=== PATIENT | female | born 1985 | race Hispanic/Latino ===

== ENCOUNTER → 2023-12-11 | Emergency (ER) | payer OTHER ==
[~2023-12-11] MED LIST: FAMOTIDINE 20 MG/2 ML VIAL IV ONE; NA CHLORIDE 0.9% 1,000 ML ONE; ONDANSETRON 4 MG/2 ML VIAL ONE; PANTOPRAZOLE 40 MG INJ ONE
[2023-12-11 14:35] LABS: Absolute Lymphocytes (CBC) 1.8 K/uL (0.7-4.9); Hematocrit 37.9 % (36.0-45.0); Lymphocytes % 29.2 % (15.3-44.8); MCV 89.5 fL (80-100); MPV 9.5 fL (7.6-11.3); Platelets 247 thou/uL (152-406); RBC Red Blood Cell Count 4.23 M/uL (3.86-4.86)
[2023-12-11 15:00] LABS: Albumin 3.5 g/dL (3.4-5.0); Bilirubin Total 0.8 mg/dL (0.2-1.0); Protein, Total 7.6 g/dL (6.4-8.2)
[2023-12-11 15:08] LABS: Specific Gravity 1.011 (1.005-1.030); Urine Bacteria <20 /HPF (<20); Urine Bilirubin NEGATIVE (Negative); Urine Blood 3+ (OVER) (Negative); Urine Clarity Extremely Turbid (Clear); Urine Color Light-Yellow (Yellow); Urine Glucose NEGATIVE (Negative); Urine Mucus Slight /HPF (None Seen); Urine Protein 1+ (Negative); Urine RBC >50 /HPF (None Seen); Urine Urobilinogen Normal (Normal); Urine pH 7.5 (5.0-7.0)
[2023-12-11 15:49] LABS: Specific Gravity 1.011 (1.005-1.030)
--- NOTE | 2023-12-11 17:12 | RAD REPORT ---
EXAM DESCRIPTION: CT - Chest Abdomen W Con - 12/11/2023 4:51 pm CLINICAL HISTORY: esophagitis/ulcer COMPARISON: No comparisons TECHNIQUE: Thin axial CT images of the chest, abdomen, and pelvis, performed following intravenous a dministration of 100mL Isovue-300. Multiplanar reformats were generated and reviewed. All CT scans are performed using dose optimization technique as appropriate and may include automated exposure control or mA/KV adjustment according to patient size. FINDINGS: The lungs are clear.No pleural or pericardial effusion.No intrathoracic adenopathy. Mild wall thickening along the distal aspect of the esophagus, nonspecific, and may relate to inflamm atory esophagitis or reflux disease. The liver, spleen, pancreas, adrenal glands and kidneys are within normal limits. No bowel obstruction, bowel wall thickening, or inflammatory changes. No free air, free fluid or absc ess. Appendix is partially visualized and is unremarkable. No pathologic lymphadenopathy in the abdo men or pelvis. No worrisome osseous finding. IMPRESSION: Mild wall thickening along the distal esophagus as above. No other acute findings.
--- NOTE | 2023-12-11 17:19 | EDPHYS ---
Physician Documentation [facility] Name: Neli Almanza Age: 38 yrs Sex: Female : 1985 Arrival Date: 12/11/2023 Time: 12:42 Bed 19 Private MD: ED Physician Vlad Bernal HPI: 12/11 13:36 This 38 yrs old Female presents to ER via Ambulatory with complaints of Chest Pain, sb4 Chest Pressure. 13:36 Patient reports chest pain for 2 days now. She states that she has had several episodes sb4 of dark stool and blood in her vomit. She denies any history of known ulcers, heavy alcohol use, excessive NSAID use. She has been taking [id number] Tums and magnesium without relief in symptoms. Denies any fever, chills, abdominal pain. Historical: - Allergies: 12:56 No Known Allergies; tl4 - Home Meds: 12:56 None [Active]; tl4 - PMHx: 12:56 None; tl4 - PSHx: 12:56 None; tl4 - Immunization history:: Adult Immunizations unknown. - Social history:: Smoking status: Patient denies any tobacco usage or history of. ROS: 13:36 Constitutional: Negative for fever, chills, and weight loss, sb4 13:36 Cardiovascular: Positive for chest pain, 13:36 Abdomen/GI: Positive for nausea and vomiting, hematemesis, black/tarry stool, 13:36 All other systems are negative, Exam: 13:36 Constitutional: This is a well developed, well nourished patient who is awake, alert, sb4 and in no acute distress. Head/Face: Normocephalic, atraumatic. Eyes: Extra-ocular motions intact. Periorbital areas with no swelling, redness, or edema. ENT: Mucous membranes moist. Cardiovascular: Regular rate and rhythm with a normal S1 and S2. Respiratory: Lungs have equal breath sounds bilaterally, clear to auscultation and percussion. No rales, rhonchi or wheezes noted. No increased work of breathing, no retractions or nasal flaring. Abdomen/GI: Soft, non-tender, no distension. Skin: Warm, dry with normal turgor. Normal color with no rashes, no lesions, and no evidence of cellulitis. MS/ Extremity: Pulses equal, no cyanosis. Neurovascular intact. Full, normal range of motion. Neuro: Awake and alert, GCS 15, oriented to person, place, time, and situation. Motor strength 5/5 in all extremities. Sensory grossly intact. Vital Signs: 12:52 BP 117 / 82; Pulse 90; Resp 16; Temp 98.2(O); Pulse Ox 98% ; Weight 90.72 kg; Height 5 tl4 ft. 0 in. ; Pain 0/10; 15:00 BP 117 / 69; Pulse 68; Resp 15; Pulse Ox 99% ; ko1 17:28 BP 115 / 68; Pulse 72; Resp 15; Pulse Ox 100% ; ko1 12:52 Body Mass Index 39.06 (90.72 kg, 152.4 cm) tl4 12:52 Pain Scale: Adult tl4 MDM: 12:47 Patient medically screened. sb4 13:36 Differential diagnosis: esophagitis, gastric ulcer, duodenal ulcer, Vera Mike tear, sb4 GIB. 15:41 Awaiting: CT scan results, urine test label was not sent so test was delayed sb4 therefore CT delayed. 17:17 Data reviewed: vital signs, nurses notes, lab test result(s), radiologic studies, and sb4 as a result, I will discharge patient. 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 12/11 12:54 Order name: CBC with Diff; Complete Time: 14:39 sb4 12/11 12:54 Order name: CMP; Complete Time: 15:06 sb4 12/11 12:54 Order name: Lipase; Complete Time: 15:06 sb4 12/11 12:54 Order name: Test, Urine; Complete Time: 15:52 sb4 12/11 12:54 Order name: Urinalysis w/ reflexes; Complete Time: 15:09 sb4 12/11 12:55 Order name: CT Chest Abdomen W/ Contrast; Complete Time: 17:14 sb4 12/11 12:54 Order name: IV Saline Lock; Complete Time: 14:12 sb4 12/11 12:54 Order name: Labs collected and sent; Complete Time: 14:12 sb4 Administered Medications: 14:24 Drug: NS 0.9% IV 1000 ml IV at 1 bolus Per protocol; 1000 mL bolus Route: IV; Rate: 1 kb3 bolus; Site: right forearm; 14:24 Drug: Famotidine IVP 20 mg IVP once; dilute with 10 mL 0.9% NaCl; give over 2 minutes kb3 Route: IVP; Site: right forearm; 14:24 Drug: Pantoprazole IVP 40 mg IVP once Route: IVP; Site: right forearm; kb3 14:24 Drug: Ondansetron IVP 4 mg IVP once; over 2 minutes Route: IVP; Site: right forearm; kb3 Disposition: 16:53 I was immediately available on-site in the Emergency Department for consultation in the md3 care of the patient. Disposition Summary: 12/11/23 17:18 Discharge Ordered Notes: Location: Home sb4 Problem: new sb4 Symptoms: have improved sb4 Condition: Stable sb4 Diagnosis - Gastro-esophageal reflux disease with esophagitis sb4 Followup: sb4 - With: Trent Patton MD - When: As needed - Reason: Further diagnostic work-up, Recheck today's complaints, Re-evaluation by your physician Followup: sb4 - With: Diomedes Dumont MD - When: As needed - Reason: Further diagnostic work-up, Recheck today's complaints, Re-evaluation by your physician Followup: sb4 - With: Trevor Vang MD - When: As needed - Reason: Further diagnostic work-up, Recheck today's complaints, Re-evaluation by your physician Discharge Instructions: - Discharge Summary Sheet sb4 - Esophagitis sb4 - Gastroesophageal Reflux Disease, Adult, [id number] sb4 Forms: - Medication Reconciliation Form sb4 - Thank You Letter sb4 - Antibiotic Education sb4 - Prescription Opioid Use sb4 - Patient Portal Instructions sb4 - Leadership Thank You Letter sb4 Prescriptions: - pantoprazole 40 mg Oral tablet, delayed release (enteric coated) - take 1 tablet ORAL route every day at bedtime; 30 tablet; Refills: 0, Product sb4 Selection Permitted - Zofran 4 mg Oral Tablet - take 1 tablet ORAL route every 12 hours As needed; 20 tablet; Refills: 0, sb4 Product Selection Permitted - Pepcid 20 mg Oral Tablet - take 1 tablet ORAL route once daily for 10 days; 10 tablet; Refills: 0, Product sb4 Selection Permitted Signatures: Dispatcher [employer] EDVlad Cardenas, DO ms3 Patricia Carmona, RN RN kb3 Naomi Hill, SHERRON [facility] sb4 Tristan Ramon tl4 Corrections: (The following items were deleted from the chart) 12:57 12:56 PMHx: Unable to Obtain; tl4 tl4
--- NOTE | 2023-12-11 17:19 | ER ---
Nurse's Notes [facility] Name: Neli Almanza Age: 38 yrs Sex: Female : 1985 Arrival Date: 12/11/2023 Time: 12:42 Bed 19 Private MD: Diagnosis: Gastro-esophageal reflux disease with esophagitis Presentation: 12/11 12:52 Chief complaint: Patient states: Pt c/o "heartburn and chest pressure" since Monday. tl4 No relief with OTC meds. Pt states she now has black stools and emesis, nausea. Pt denies abdominal pain. Coronavirus screen: Vaccine status: Patient reports being unvaccinated. At this time, the client does not indicate any symptoms associated with coronavirus-19. Ebola Screen: Patient negative for fever greater than or equal to 101.5 degrees Fahrenheit, and additional compatible Ebola Virus Disease symptoms Patient denies exposure to infectious person. Patient denies travel to an Ebola-affected area in the 21 days before illness onset. No symptoms or risks identified at this time. Initial Sepsis Screen: Does the patient meet any 2 criteria? No. Patient's initial sepsis screen is negative. Does the patient have a suspected source of infection? No. Patient's initial sepsis screen is negative. Risk Assessment: Do you want to hurt yourself or someone else? Patient reports no desire to harm self or others. Onset of symptoms was December 09, 2023. 12:52 Method Of Arrival: Ambulatory tl4 12:52 Acuity: JUDITH 3 tl4 Triage Assessment: 12:57 General: Appears uncomfortable, Behavior is calm, cooperative. Pain: Complains of pain tl4 in chest. EENT: No deficits noted. No signs and/or symptoms were reported regarding the EENT system. Neuro: No deficits noted. Cardiovascular: Reports chest pain, nausea. Respiratory: Reports shortness of breath. GI: Reports bloody stool, nausea, vomiting. : No deficits noted. No signs and/or symptoms were reported regarding the genitourinary system. Historical: - Allergies: 12:56 No Known Allergies; tl4 - Home Meds: 12:56 None [Active]; tl4 - PMHx: 12:56 None; tl4 - PSHx: 12:56 None; tl4 - Immunization history:: Adult Immunizations unknown. - Social history:: Smoking status: Patient denies any tobacco usage or history of. Screenin:00 [facility] ED Fall Risk Assessment (Adult) History of falling in the last 3 months, ko1 including since admission No falls in past 3 months (0 pts) Confusion or Disorientation No (0 pts) Intoxicated or Sedated No (0 pts) Impaired Gait No (0 pts) Mobility Assist Device Used No (0 pt) Altered Elimination No (0 pt) Score/Fall Risk Level 0 - 2 = Low Risk Oriented to surroundings, Maintained a safe environment, Educated pt \\T\\ family on fall prevention, incl call for assistance when getting out of bed, Assessed \\T\\ reinforced patient's understanding of fall precautions, Provided non-skid footwear, Hourly rounding (assess needs \\T\\ fall precautionary measures) done, Used ambulatory aids as needed (educated on \\T\\ assisted with), Used gait belt as appropriate. Abuse screen: Denies threats or abuse. Denies injuries from another. Nutritional screening: No deficits noted. Tuberculosis screening: No symptoms or risk factors identified. Assessment: 15:00 Pain: Pain does not radiate. Pain began gradually. ko1 Vital Signs: 12:52 BP 117 / 82; Pulse 90; Resp 16; Temp 98.2(O); Pulse Ox 98% ; Weight 90.72 kg; Height 5 tl4 ft. 0 in. ; Pain 0/10; 15:00 BP 117 / 69; Pulse 68; Resp 15; Pulse Ox 99% ; ko1 17:28 BP 115 / 68; Pulse 72; Resp 15; Pulse Ox 100% ; ko1 12:52 Body Mass Index 39.06 (90.72 kg, 152.4 cm) tl4 12:52 Pain Scale: Adult tl4 ED Course: 12:45 Patient arrived in ED. mg5 12:46 Naomi Hill PA-C is PHCP. sb4 12:46 Vlad Bernal DO is Attending Physician. sb4 12:56 Triage completed. tl4 12:58 Arm band placed on right wrist. tl4 14:12 Initial lab(s) drawn, by me, sent to lab. Inserted saline lock: 22 gauge in right em1 forearm, using aseptic technique. Blood collected. 14:13 CBC with Diff Sent. em1 14:13 CMP Sent. em1 14:13 Lipase Sent. em1 14:41 Franky, Mindy, RN is Primary Nurse. ko1 14:51 Test, Urine Sent. ko1 14:51 Urinalysis w/ reflexes Sent. ko1 15:00 Patient has correct armband on for positive identification. Placed in gown. Bed in low ko1 position. Call light in reach. Side rails up X2. Provided Education on: na. Pulse ox on. NIBP on. Door closed. Noise minimized. Lights dimmed. Warm blanket given. 15:00 No provider procedures requiring assistance completed. Patient maintains SpO2 ko1 saturation greater than 95% on room air. 16:53 CT Chest Abdomen W/ Contrast In Process Unspecified. EDMS 17:17 Trent Patton MD is Referral Physician. sb4 17:17 Diomedes Dumont MD is Referral Physician. sb4 17:17 Trevor Vang MD is Referral Physician. sb4 17:28 IV discontinued, intact, bleeding controlled, No redness/swelling at site. Pressure ko1 dressing applied. Administered Medications: 14:24 Drug: NS 0.9% IV 1000 ml IV at 1 bolus Per protocol; 1000 mL bolus Route: IV; Rate: 1 kb3 bolus; Site: right forearm; 14:24 Drug: Famotidine IVP 20 mg IVP once; dilute with 10 mL 0.9% NaCl; give over 2 minutes kb3 Route: IVP; Site: right forearm; 14:24 Drug: Pantoprazole IVP 40 mg IVP once Route: IVP; Site: right forearm; kb3 14:24 Drug: Ondansetron IVP 4 mg IVP once; over 2 minutes Route: IVP; Site: right forearm; kb3 Medication: 15:00 VIS not applicable for this client. ko1 Outcome: 17:18 Discharge ordered by . sb4 17:28 Discharged to home ambulatory, with family, ko1 17:28 Condition: stable 17:28 Discharge instructions given to patient, family, Instructed on discharge instructions, follow up and referral plans. medication usage, Demonstrated understanding of instructions, follow-up care, medications, Prescriptions given X 3, 17:29 Patient left the ED. ko1 Signatures: Dispatcher [employer] EDMS Michael Fuentes em1 Patricia Carmona RN RN kb3 Mindy Wilkins, LEANN RN ko1 Naomi Hill PA-C PA-C sb4 Chelle Myrick mg5 Tristan Ramon tl4 Corrections: (The following items were deleted from the chart) 12:57 12:56 PMHx: Unable to Obtain; tl4 tl4
[2023-12-11 20:25] VITALS: BP 115/68; TEMP 98.2; O2SAT 100
== END ==
LOC: ER 12:42
DX: K21.00 Gastro-esophageal reflux disease with esophagitis, without bleeding (principal)
CPT/HCPCS: 85025; 81001; 36415; 81025; 83690; 80053; 74160; 71260; Q9967; C9113; J2405; J7030

== ENCOUNTER 2025-02-15 10:42 | Emergency (ER) | payer OTHER ==
--- OUTSIDE RECORDS SUMMARY | 2025-02-15 10:55 | XMS REPORT | Continuity of Care Document ---
Author Name Unknown Address [address] [facility] [address] [place] [address] [facility] [place] Address [address] [facility] [address] [place] [address] Care Team Providers Care Environmental Web Crawler Name Role Phone CAILIN GASCA Primary Care Physician Unavailab JOSIAS Diamond Attending Clinician Unavaila CAILIN Israel Attending Clinician Unavailable Cailin Case Attending Clinician [phone] Lab, Ang - Db Attending Clinician Unavailable ALYCE WILBURN Attending Clinician Unavail able TAYLER CARRILLO Attending Clinician Unavailab Tayler Gautam DO Attending Clinician [phone] GUIDO TOBIAS Attending Clinician Unavailable Guido Godinez Attending Clinician [phone] Unknown, Attending Attending Clinician Unavailab le UNKNOWN, ATTENDING Attending Clinician Unavailab le Doctor Unassigned, [place] Attending Clinician MELVIN Levy Attending Clinician Unavailable Melvin Mnédez MD Attending Clinician [phone] Sahkir ROBERT Attending Clinician Unavailable Shakir Saldivar Attending Clinician [phone] Alyce Benito Attending Clinician + Annemarie Donahue Attending Clinician [phone] ANNEMARIE ACRRILLO Attending Clinician Unavailgab e Dmitriy AGUILAR, Chuck Manjarrez Attending Clinician + [phone] CHUCK PLATT Attending Clinician Unavailab le [facility] WILFRIDO Rizo Attending Clinician Unavailabl e [facility]ician Kira Pollack MD, Shelby Gerardo Attending Clinician [phone] Giana Lynn MD, Lopez Attending Clinician + Geovany Pollack DO Attending Clinician [phone] Eran ZELAYA, Carley Attending Clinician [phone] Provider, Gina Temp Attending Clinician Leatha Quinn Attending Clinician + [phone] WILFRIDO SUMNER Admitting Clinician Unavailabl e Payers Payer Name Policy Type Policy Number Effective Date Expirati on Date Source [employer]IG[employer] II [id number] 2022 00:00:00 MEDICAID PENDING PENDING 2020 00:00:00 Problems Condition Name Condition Details Condition Category Status Onset Date Resolution Date Last Treatment Date Treating Clinician Comments Source Obesity (BMI 30-39.9) Obesity (BMI 30-39.9) Disease Active 2020-11 00:00: 00 [facility] Allergies, Adverse Reactions, Alerts Allergy Name Allergy Type Status Severity Reaction(s) Onset Date Inactive Date Treating Clinician Comments Source NO KNOWN ALLERGIE S Drug Class Active [facility] Social History Social Habit Start Date Stop Date Quantity Comments Source [facility] History SDOH Alcohol Frequency [facility] History SDOH Alcohol Std Drinks [facility] History SDOH Alcohol Binge [facility] Alcohol intake 2023-08-21 00:00:00 2023-08-21 00:00:00 Current drinker of alcohol (finding) [facility] History of Social function 2023-08-21 00:00:00 2023-08-21 00:00:00 [facility] Exposure to SARS-CoV-2 (event) 2022-11-25 00:00:00 2022-12-05 14:10:[address] [facility] Tobacco use and exposure 2022-09-23 00:00:00 2022-09-23 00:00:00 Smokeless tobacco non-user [facility] Alcohol Comment 2021-10-06 00:00:00 2021-10-06 00:00:[address] [facility] Sex Assigned At 1985 00:00:00 1985 00:00:00 [facility] Smoking Status Start Date Stop Date Source Never smoked tobacco [facility] Medications Ordered Medication Name Filled Medication Name Start Date Stop Date Current Medication? Ordering Clinician Indication Dosage Frequency Signature (SIG) Comments Components Source traZODone 50 mg tablet 01-31 00:00: 00 Yes [id number] 50mg TAKE 1 TABLET BY MOUTH EVERY DAY AT BEDTIME NEEDED FOR INSOMNIA [facility] traZODone 50 mg tablet 12-11 00:00: 00 Yes [id number] 50mg Take 1 tablet by mouth at bedtime as needed for Insomnia. [facility] mupirocin 2 % cream 2022-11 00:00: 00 Yes [id number] Apply to affected area(s) 2 (two) times daily. [facility] traZODone 50 mg tablet 2022-11 00:00: 00 12-10 00:00 :00 No [id number] 50mg Take 1 tablet by mouth at bedtime as needed for Insomnia. [facility] SERTraline (ZOLOFT) 25 mg tablet 2022-11 00:00: 00 Yes [id number] 25mg Take 1 tablet by mouth in the morning. [facility] SERTraline (ZOLOFT) 25 mg tablet 2022-11 0-09 00:00: 00 10-12 00:00 :00 No [id number] 25mg Take 1 tablet by mouth in the morning. [facility] traZODone 50 mg tablet 2022-11 0-09 00:00: 00 10-12 00:00 :00 No [id number] 50mg Take 1 tablet by mouth at bedtime as needed for Insomnia. [facility] traZODone 50 mg tablet 6-24 00:00: 00 08-21 00:00 :00 No [id number] 50mg Take 1 tablet by mouth at bedtime as needed for Insomnia. [facility] traZODone 50 mg tablet 3-31 00:00: 00 Yes [id number] 50mg Take 1 tablet by mouth at bedtime as needed for Insomnia. [facility] SERTraline (ZOLOFT) 50 mg tablet 01-31 00:00: 00 08-21 00:00 :00 No [id number] 50mg Take 1 tablet by mouth in the morning. [facility] dicyclomine 10 mg capsule 3-04 00:00: 00 01-20 05:59 :00 No [id number] 10mg Take 1 capsule by mouth 4 (four) times daily for 5 days. [facility] ondansetron 4 mg disintegrat ing tablet 3 00:00: 00 01-20 05:59 :00 No [id number] 4mg Take 1 tablet by mouth every 8 (eight) hours as needed for Nausea and Vomiting (N/V) for up to 5 days. [facility] MUPIROCIN 2 % cream 1-24 00:00: 00 10-12 00:00 :00 No [id number] APPLY TO AFFECTED AREA TWICE A DAY [facility] buPROPion SR (WELLBUTRIN SR) 150 mg SR tablet 1- 00:00: 00 Yes [id number] 150mg Take 1 tablet by mouth in the morning and 1 tablet in the evening. [facility] SERTraline (ZOLOFT) 50 mg tablet 12-05 00:00: 00 01-31 00:00 :00 No [id number] 50mg Take 1 tablet by mouth in the morning. [facility] mupirocin 2 % cream 12-05 00:00: 00 12-06 00:00 :00 No [id number] Apply to area(s) 2 (two) times daily. [facility] traZODone 50 mg tablet 11-21 00:00: 00 02-10 00:00 :00 No [id number] 50mg Take 1 tablet by mouth at bedtime as needed for Insomnia. [facility] ergocalcife rol, vitamin d2, 1,250 mcg (50,000 unit) capsule 2021-11 00:00: 00 Yes [id number] 45312E Take 1 capsule by mouth weekly. [facility] traZODone 50 mg tablet 2021-11 00:00: 00 Yes [id number] 50mg Take 1 tablet by mouth at bedtime as needed for Insomnia. [facility] buPROPion SR (WELLBUTRIN SR) 150 mg SR tablet 2021-11 00:00: 00 12-05 00:00 :00 No [id number] 150mg Take 1 tablet by mouth in the morning and 1 tablet in the evening. [facility] bromphenira mine-pseudo ephedrine-D M (BROMFED DM) 2-30-10 mg/5 mL syrup 2021-11 00:00: 00 12-05 00:00 :00 No [id number] 5mL Take 5 mL by mouth 4 (four) times daily as needed for Congestion /Allergies . [facility] benzonatate 100 mg capsule 2021-11 00:00: 00 12-05 00:00 :00 No [id number] 200mg Take 2 capsules by mouth every 8 (eight) hours as needed for Cough. [facility] phenoL (CHLORASEPT IC THROAT SPRAY) 1.4 % spray 2021-11 00:00: 00 12-05 00:00 :00 No [id number] 1{spray } Take 1 [place] by mouth as needed for Sore throat. [facility] ondansetron 4 mg disintegrat ing tablet 05-25 00:00: 00 12-05 00:00 :00 No [id number] 4mg Take 1 tablet by mouth every 8 (eight) hours as needed for Nausea and Vomiting (N/V). [facility] norethindro ne 0.35 mg tablet 2020-11 00:00: 00 12-05 00:00 :00 No [id number] .35mg Take 1 tablet by mouth daily. [facility] vitamin w/FA tablet 06-06 00:00: 00 10-06 00:00 :00 No [id number] 1{tbl} Take 1 tablet by mouth daily. [facility] docusate calcium 240 mg capsule 06-06 00:00: 00 10-06 00:00 :00 No [id number] 240mg Take 1 capsule by mouth once daily as needed for Constipati on. [facility] ferrous sulfate 325 mg (65 mg iron) tablet 06-06 00:00: 00 10-06 00:00 :00 No [id number] 325mg Take 1 tablet by mouth 2 (two) times daily. [facility] ibuprofen 600 mg tablet 06-06 00:00: 00 10-06 00:00 :00 No [id number] 600mg Take 1 tablet by mouth every 6 (six) hours as needed (Pain). Take with food or milk. [facility] norethindro ne 0.35 mg tablet 06-06 00:00: 00 10-06 00:00 :00 No [id number] .35mg Take 1 tablet by mouth daily. [facility] Immunizations Ordered Immunization Name Filled Immunization Name Date Status Comments Source TDAP 2024-02-01 00:00:[address] [facility] MMR 2024-02-01 00:00:[address] [facility] TDAP 2023-12-10 00:00:[address] [facility] MMR 2023-12-10 00:00:[address] [facility] TDAP 2023-11-16 00:00:[address] [facility] MMR 2023-11-16 00:00:[address] [facility] TDAP 2023-10-12 00:00:[address] [facility] MMR 2023-10-12 00:00:[address] [facility] TDAP 2023-10-12 00:00:[address] [facility] MMR 2023-10-12 00:00:[address] [facility] TDAP 2023-08-24 09:30:[address] [facility] MMR 2023-08-24 09:30:[address] [facility] TDAP 2023-08-21 16:30:[address] [facility] MMR 2023-08-21 16:30:[address] [facility] TDAP 2022-01-25 00:00:[address] [facility] MMR 2022-01-25 00:00:[address] [facility] MMR 2021-06-06 00:00:[address] [facility] MMR 2021-06-06 00:00:[address] [facility] MMR 2021-06-06 00:00:[address] [facility] MMR 2021-06-06 00:00:[address] [facility] MMR 2021-06-06 00:00:[address] [facility] MMR 2021-06-06 00:00:[address] [facility] MMR 2021-06-06 00:00:[address] [facility] MMR 2021-06-06 00:00:[address] [facility] MMR 2021-06-06 00:00:[address] [facility] MMR 2021-06-06 00:00:[address] [facility] MMR 2021-06-06 00:00:[address] [facility] MMR 2021-06-06 00:00:[address] [facility] MMR 2021-06-06 00:00:[address] [facility] MMR 2021-06-06 00:00:[address] [facility] MMR 2021-06-06 00:00:[address] [facility] MMR 2021-06-06 00:00:[address] [facility] MMR 2021-06-06 00:00:[address] [facility] TDAP 2021-03-24 00:00:[address] [facility] TDAP 2021-03-24 00:00:[address] [facility] TDAP 2021-03-24 00:00:[address] [facility] TDAP 2021-03-24 00:00:[address] [facility] TDAP 2021-03-24 00:00:[address] [facility] TDAP 2021-03-24 00:00:[address] [facility] TDAP 2021-03-24 00:00:[address] [facility] TDAP 2021-03-24 00:00:[address] [facility] TDAP 2021-03-24 00:00:[address] [facility] TDAP 2021-03-24 00:00:[address] [facility] TDAP 2021-03-24 00:00:[address] [facility] TDAP 2021-03-24 00:00:[address] [facility] TDAP 2021-03-24 00:00:[address] [facility] TDAP 2021-03-24 00:00:[address] [facility] TDAP 2021-03-24 00:00:[address] [facility] TDAP 2021-03-24 00:00:[address] [facility] TDAP 2021-03-24 00:00:[address] [facility] Vital Signs Vital Name Observation Time Observation Value Comments S ource Systolic blood pressure 2023-08-21 21:22:00 115 mm[Hg] [facility] Diastolic blood pressure 2023-08-21 21:22:00 76 mm[Hg] [facility] Heart rate 2023-08-21 21:22:00 75 /min [facility] Body height 2023-08-21 21:22:00 152.4 cm [facility] Body weight 2023-08-21 21:22:00 89.812 kg [facility] BMI 2023-08-21 21:22:00 38.67 kg/m2 [facility] Oxygen saturation in Arterial blood by Pulse oximetry 2023-08-21 21:22:00 98 /min [facility] Systolic blood pressure 2023-01-15 02:19:00 125 mm[Hg] [facility] Diastolic blood pressure 2023-01-15 02:19:00 86 mm[Hg] [facility] Heart rate 2023-01-15 02:19:00 101 /min [facility] Body temperature 2023-01-15 02:19:[address] [facility] Respiratory rate 2023-01-15 02:19:00 16 /min [facility] Body weight 2023-01-15 02:19:00 79.833 kg [facility] BMI 2023-01-15 02:19:00 34.37 kg/m2 [facility] Oxygen saturation in Arterial blood by Pulse oximetry 2023-01-15 02:19:00 97 /min [facility] Systolic blood pressure 2022-12-05 20:13:00 128 mm[Hg] [facility] Diastolic blood pressure 2022-12-05 20:13:00 86 mm[Hg] [facility] Heart rate 2022-12-05 20:13:00 77 /min [facility] Body height 2022-12-05 20:13:00 152.4 cm [facility] Body weight 2022-12-05 20:13:00 82.328 kg [facility] BMI 2022-12-05 20:13:00 35.45 kg/m2 [facility] Oxygen saturation in Arterial blood by Pulse oximetry 2022-12-05 20:13:00 98 /min [facility] Systolic blood pressure 2022-09-23 19:18:00 122 mm[Hg] [facility] Diastolic blood pressure 2022-09-23 19:18:00 83 mm[Hg] [facility] Heart rate 2022-09-23 19:18:00 71 /min [facility] Body height 2022-09-23 19:18:00 152.4 cm [facility] Body weight 2022-09-23 19:18:00 83.961 kg [facility] BMI 2022-09-23 19:18:00 36.15 kg/m2 [facility] Oxygen saturation in Arterial blood by Pulse oximetry 2022-09-23 19:18:00 100 /min [facility] Systolic blood pressure 2022-08-30 16:25:00 123 mm[Hg] [facility] Diastolic blood pressure 2022-08-30 16:25:00 85 mm[Hg] [facility] Heart rate 2022-08-30 16:25:00 113 /min [facility] Body temperature 2022-08-30 16:25:[address] [facility] Respiratory rate 2022-08-30 16:25:00 18 /min [facility] Body height 2022-08-30 16:25:00 152.4 cm [facility] Body weight 2022-08-30 16:25:00 82.237 kg [facility] BMI 2022-08-30 16:25:00 35.41 kg/m2 [facility] Oxygen saturation in Arterial blood by Pulse oximetry 2022-08-30 16:25:00 95 /min [facility] Systolic blood pressure 2022-05-25 15:28:00 116 mm[Hg] [facility] Diastolic blood pressure 2022-05-25 15:28:00 79 mm[Hg] [facility] Heart rate 2022-05-25 15:28:00 95 /min [facility] Body temperature 2022-05-25 15:28:[address] [facility] Respiratory rate 2022-05-25 15:28:00 18 /min [facility] Body weight 2022-05-25 15:28:00 82.555 kg [facility] BMI 2022-05-25 15:28:00 35.54 kg/m2 [facility] Oxygen saturation in Arterial blood by Pulse oximetry 2022-05-25 15:28:00 98 /min [facility] Systolic blood pressure 2021-10-06 19:27:00 135 mm[Hg] [place] [facility] Diastolic blood pressure 2021-10-06 19:27:00 90 mm[Hg] [place] [facility] Heart rate 2021-10-06 19:27:00 68 /min [facility] Body temperature 2021-10-06 19:27:[address] [facility] Respiratory rate 2021-10-06 19:27:00 16 /min [facility] Body height 2021-10-06 19:27:00 152.4 cm [facility] Body weight 2021-10-06 19:27:00 82.668 kg [facility] BMI 2021-10-06 19:27:00 35.59 kg/m2 [facility] Procedures Procedure Date / Time Performed Performing Clinicia n Source NOTICE OF PRIVACY PRACTICES 2023-01-15 02:48:12 Doctor Unassigned, [place] [facility] CONSENT/REFUSAL FOR DIAGNOSIS AND TREATMENT 2023-01-15 02:47:06 Doctor Unassigned, [place] [facility] PATIENT FINANCIAL POLICY 2023-01-15 02:06:41 Doctor Unassigned, [place] [facility] COMP. METABOLIC PANEL ([id number]) 2022-09-23 20:05:[address] [facility] CBC WITH DIFF 2022-09-23 20:05:00 Cailin Gasca [facility] POCT MOLECULAR FLU 2022-08-30 16:57:00 Unknown, Attend ing [facility] POCT MOLECULAR STREP 2022-08-30 16:37:00 Unknown, Atte nding [facility] ASSIGNMENT OF BENEFITS 2022-08-30 16:21:11 Docto r Unassigned, [place] [facility] COVID-19 (ID NOW RAPID TESTING) 2022-05-25 15:52:[address] [facility] CONSENT/REFUSAL FOR DIAGNOSIS AND TREATMENT 2022-05-25 15:16:55 Doctor Unassigned, [place] [facility] Encounters Start Date/Time End Date/Time Encounter Type Admission Type Attending Clinicians Care Facility Care Department Encounter ID Source 2024-06-24 09:00:00 2024-06-24 09:00:00 Outpatient R CAILIN GASCA [facility] [id number] [facility] 2024-02-01 00:00:00 2024-02-01 00:00:00 [facility] [id number] 350.1.13.10 4.2.7.2.686 [id number] [facility] 2023-12-11 15:30:00 2023-12-11 15:30:00 Outpatient R CAILIN GASCA [facility] [id number] [facility] 2023-12-10 00:00:00 2023-12-10 00:00:00 [facility] [id number] 350.1.13.10 4.2.7.2.686 [id number] [facility] 2023-11-28 11:30:00 2023-11-28 11:30:00 Outpatient CAILIN MACHADO [facility] [id number] [facility] 2023-11-16 00:00:00 2023-11-16 00:00:00 Patient Secure [facility] 1.2.840.114 350.1.13.10 4.2.7.2.686 [id number] [facility] 2023-10-12 00:00:00 2023-10-12 00:00:00 RefCandice StoneReplaced by [facility] [id number] 350.1.13.10 4.2.7.2.686 [id number] [facility] 2023-10-12 00:00:00 2023-10-12 00:00:00 RefCandice [facility]on[facility]iUNC [facility]Z?[facility] 1.2.840.114 350.1.13.10 4.2.7.2.686 [id number] [facility] 2023-08-24 09:30:00 2023-08-24 10:09:03 Outpatient R CAILIN GASCA [facility] [id number] [facility] 2023-08-24 09:30:00 2023-08-24 10:09:03 Slab Miller Operator Visit Lab, [place] [facility] [id number] 350.1.13.10 4.2.7.2.686 [id number] [facility] 2023-08-21 16:30:00 2023-08-21 17:12:08 Outpatient R CAILIN GASCA [facility] [id number] [facility] 2023-08-21 16:30:00 2023-08-21 17:12:08 Office Visit Candice [facility]aReplaced by [facility] 1.2840.114 350.1.13.10 4.2.7.2.686 [id number] [facility] 2023-05-05 00:00:00 2023-05-05 00:00:00 Refill Sharif [facility] [id number] 350.1.13.10 4.2.7.2.686 [id number] [facility] 2023-02-09 00:00:00 2023-02-09 00:00:00 Refill [facility]if [facility] 1.2840.114 350.1.13.10 4.2.7.2.686 [id number] [facility] 2023-01-31 00:00:00 2023-01-31 00:00:00 RefCailin Stone [facility] 1..840.114 350.1.13.10 4.2.7.2.686 [id number] [facility] 2023-01-14 21:19:00 2023-01-14 21:55:00 Emergency X TAYLER CARRILLO [facility] ERT [id number] [facility] 2023-01-14 21:19:00 2023-01-14 21:55:00 Emergency Tayler Carrillo [facility] 1..840.114 350.1.13.10 4.2.7.2.686 [id number] [facility] 2023-01-14 20:20:00 2023-01-14 20:43:06 Outpatient R GUIDO TOBIAS [facility] [id number] [facility] 2023-01-14 20:20:00 2023-01-14 20:40:00 Urgent Care Guido Tobias Unknown, Attending [facility] 1..840.114 350.1.13.10 4.2.7.2.686 [id number] [facility] 2023-01-14 20:15:00 2023-01-14 20:15:00 Outpatient R UNKNOWN, ATTENDING [facility] [id number] [facility] 2023-01-14 00:00:00 2023-01-14 00:00:00 Orders Only Doctor Unassigned, [place] [facility] 1.840.114 350.1.13.10 4.2.7.2.686 [id number] [facility] 2022-12-05 14:30:00 2022-12-05 15:22:33 Outpatient R CAILIN GASCA [facility] [id number] [facility] 2022-12-05 14:30:00 2022-12-05 15:22:33 [facility] 1.2840.114 350.1.13.10 4.2.7.2.686 [id number] [facility] 2022-12-05 00:00:00 2022-12-05 00:00:00 Refill Candice GascaReplaced by [facility] 1.2840.114 350.1.13.10 4.2.7.2.686 [id number] [facility] 2022-12-05 00:00:00 2022-12-05 00:00:00 Telephone Candice GascaReplaced by [facility]LEE PEREZ?[facility] MED[facility] OFFICE BUILDING 1.2840.114 350.1.13.10 4.2.7.2.686 [id number] [facility] 2022-11-21 00:00:00 2022-11-21 00:00:00 RefCandice StoneReplaced by [facility]EREZ?[facility] MED[facility] OFF[facility] BUILDING 1.284.114 350.1.13.10 4.2.7.2.686 [id number] [facility] 2022-10-19 00:00:00 2022-10-19 00:00:00 Patient Secure Msg Candice GascaReplaced by [facility] MED[facility] OFFICE BUILDING 1.2840.114 350.1.13.10 4.2.7.2.686 [id number] [facility] 2022-09-23 14:00:00 2022-09-23 14:15:00 Slab Miller Operator Visit Lab, [facility] Candice GascaReplaced by [facility]EREZ?[facility] MEDICAL OFFICE BUILDING 1.2840.114 350.1.13.10 4.2.7.2.686 [id number] [facility] 2022-09-23 13:00:00 2022-09-23 13:51:24 Outpatient R CAILIN GASCA [facility] [id number] [facility] 2022-09-23 13:00:00 2022-09-23 13:51:24 [facility] MED[facility] OFF[facility] BUILD[facility] 1.114 350.1.13.10 4.2.7.2.686 [id number] [facility] 2022-08-30 11:20:00 2022-08-30 11:39:27 Outpatient R MELVIN MÉNDEZ [facility] [id number] [facility] 2022-08-30 11:20:00 2022-08-30 11:39:27 Urgent Care Dev Melvin Unknown, Attending [facility] 1.84114 350.1.13.10 4.2.7.2.686 [id number] [facility] 2022-08-30 00:00:00 2022-08-30 00:00:00 Orders Only Doctor Unassigned, [place] [facility] 1.114 350.1.13.10 4.2.7.2.686 [id number] [facility] 2022-05-25 10:30:00 2022-05-25 12:55:00 Emergency X Shakir ROBERT [facility] [id number] [facility] 2022-05-25 10:30:00 2022-05-25 12:55:00 Emergency Shakir Robert [facility] 1.0.114 350.1.13.10 4.2.7.2.686 [id number] [facility] 2022-01-25 00:00:00 2022-01-25 00:00:00 Patient Secure Alyce Wilburn Shaun [facility] [employer] [facility]ILD [facility] 1..840.114 350.1.13.10 4.2.7.2.686 [id number] [facility] 2021-10-06 13:09:25 2021-10-06 13:53:59 Office Visit Annemarie Carrillo [facility] [employer] [facility]ILD [facility] 1.840.114 350.1.13.10 4.2.7.2.686 [id number] [facility] 2021-10-06 13:00:00 2021-10-06 13:53:59 Outpatient R ANNEMARIE CARRILLO [facility] [id number] [facility] 2021-07-12 13:00:00 2021-07-12 13:00:00 Outpatient R ALYCE WILBURN [facility] [id number] [facility] 2021-06-21 11:01:00 2021-06-21 11:16:00 Routine Visit Chuck Platt [facility] 1.840.114 350.1.13.10 4.2.7.2.686 [id number] [facility] 2021-06-21 11:00:00 2021-06-21 11:00:00 Outpatient R CHUCK PLATT [facility] [id number] [facility] 2021-06-14 12:53:49 2021-06-14 13:20:53 Nurse Visit Visit, Ang-Rmchp Nurse Chuck Platt [facility] 1..840.114 350.1.13.10 4.2.7.2.686 [id number] [facility] 2021-06-14 13:00:00 2021-06-14 13:00:00 Outpatient R ZEKE PLATTJoe [facility] [id number] [facility] 2021-06-05 07:47:00 2021-06-05 07:47:00 Outpatient P WILFRIDO SUMNER [facility] [id number] [facility] 2021-06-05 00:00:00 2021-06-05 00:00:00 Orders Only Doctor Unassigned, [place] [facility] 1.114 350.1.13.10 4.2.7.2.686 [id number] [facility] 2021-06-02 14:15:41 2021-06-02 15:16:50 Routine Visit Alyce Wilburn [facility] [employer]ERNAL & CHILD [facility] 1..114 350.1.13.10 4.2.7.2.686 [id number] [facility] 2021-06-02 14:15:00 2021-06-02 14:15:00 Outpatient R ALYCE WILBURN [facility] [id number] [facility] 2021-05-26 10:02:09 2021-05-26 10:39:11 Routine Visit Alyce Wilburn [facility] [employer] [facility] 1..114 350.1.13.10 4.2.7.2.686 [id number] [facility] 2021-05-26 10:15:00 2021-05-26 10:15:00 Outpatient R ALYCE WILBURN [facility] [id number] [facility] 2021-05-19 14:11:05 2021-05-19 15:20:43 Routine Visit Alyce Wilburn [facility] [employer] [facility] 1..114 350.1.13.10 4.2.7.2.686 [id number] [facility] 2021-05-19 14:15:00 2021-05-19 14:15:00 [facility] [id number] [facility] 2021-05-05 10:00:25 2021-05-05 10:44:49 Routine Visit Alyce Wilburn [facility] [employer] 1.2.840.114 350.1.13.10 4.2.7.2.686 [id number] 107 [id number] [facility] 2021-05-05 10:00:00 2021-05-05 10:00:00 Outpatient R ALYCE WILBURN [facility] [id number] [facility] 2021-04-21 09:11:42 2021-04-21 09:26:42 Routine Visit Alyce Wilburn [facility] [employer] [facility] ..840.114 350.1.13.10 4.2.7.2.686 [id number] 107 [id number] [facility] 2021-04-21 09:15:00 2021-04-21 09:15:00 Outpatient R ALYCE WILBURN [facility] [id number] [facility] 2021-04-07 08:54:34 2021-04-07 09:52:24 Routine Visit Alyce Wilburn [facility] [facility] .2.840.114 350.1.13.10 4.2.7.2.686 [id number] [facility] 2021-04-07 09:00:00 2021-04-07 09:00:00 Outpatient R ALYCE WILBURN [facility] [id number] [facility] 2021-03-24 08:06:15 2021-03-24 08:32:49 Routine Visit Alyce Wilburn [facility] [employer]ER [facility] CHILD [place] [address].114 350.1.13.10 4.2.7.2.686 [id number] 107 [id number] [facility] 2021-03-24 08:00:00 2021-03-24 08:00:00 Outpatient R ALYCE WILBURN [facility] [id number] [facility] 2021-03-17 10:04:29 2021-03-17 10:34:29 Slab Miller Operator Visit Ultrasound, Shelby Figueroa [facility] [employer] .114 350.1.13.10 4.2.7.2.686 [id number] [facility] 2021-03-17 10:15:00 2021-03-17 10:15:00 Outpatient P [facility] [id number] [facility] 2021-03-03 10:44:15 2021-03-03 11:38:46 Routine Visit Alyce Wilburn [facility] [facility] .114 350.1.13.10 4.2.7.2.686 [id number] 107 [id number] [facility] 2021-03-03 10:45:00 2021-03-03 10:45:00 Outpatient R ALYCE WILBURN [facility] [id number] [facility] 2021-02-24 00:00:00 2021-02-24 00:00:00 Patient Secure Msg Doctor Unassigned, [place] [facility] .114 350.1.13.10 4.2.7.2.686 [id number] [facility] 2021-02-24 00:00:00 2021-02-24 00:00:00 Refill Alyce Wilburn [facility] [employer] CHILD [facility] 1..114 350.1.13.10 4.2.7.2.686 [id number] 107 [id number] [facility] 2021-02-17 10:03:55 2021-02-17 10:48:55 Slab Miller Operator Visit Ultrasound, Jessica Vargas [facility] [employer]LL[employer] ENG[facility]ER [facility] MATERNAL & CHILD [facility] 1.2.840.114 350.1.13.10 4.2.7.2.686 [id number] [facility] 2021-02-17 10:00:00 2021-02-17 10:00:00 Outpatient P [facility] [id number] [facility] 2021-02-17 00:00:00 2021-02-17 00:00:00 Abstract Alyce Wilburn [facility] [facility] 1.840.114 350.1.13.10 4.2.7.2.686 [id number] 107 [id number] [facility] 2021-02-02 12:51:15 2021-02-02 13:25:15 Routine Visit Alyce Wilburn [facility] POLL[employer] [facility]ER [facility] CHILD [facility] .840.114 350.1.13.10 4.2.7.2.686 [id number] [facility] 2021-02-02 12:45:00 2021-02-02 12:45:00 Outpatient R ALYCE WILBURN [facility] [id number] [facility] 2021-02-02 00:00:00 2021-02-02 00:00:00 Patient Outreach Geovany Pollack [facility] .840.114 350.1.13.10 4.2.7.2.686 [id number] [facility] 2021-01-19 00:00:00 2021-01-19 00:00:00 Abstract Alyce Wilburn [facility]LL[facility] 1.2.840.114 350.1.13.10 4.2.7.2.686 [id number] [facility] 2021-01-18 09:06:16 2021-01-18 10:06:16 Slab Miller Operator Visit Ultrasound, Jessica Vargas [facility] POLL[employer] ENG[facility] MATERNAL & CHILD [facility] 1..840.114 350.1.13.10 4.2.7.2.686 [id number] [facility] 2021-01-18 09:00:00 2021-01-18 09:00:00 Outpatient P [facility] [id number] [facility] 2021-01-08 10:51:37 2021-01-08 11:06:37 Routine Visit Alyce Wilburn [facility]LL[facility] ..840.114 350.1.13.10 4.2.7.2.686 [id number] [facility] 2021-01-08 10:45:00 2021-01-08 10:45:00 Outpatient R ALYCE WILBURN [facility] [id number] [facility] 2021-01-04 10:30:00 2021-01-04 10:30:00 Outpatient R ALYCE WILBURN [facility] [id number] [facility] 2020-12-07 08:52:08 2020-12-07 09:35:01 Routine Visit Alyce Wilburn [facility] [facility] ..840.114 350.1.13.10 4.2.7.2.686 [id number] [facility] 2020-12-07 09:00:00 2020-12-07 09:00:00 Outpatient R ALYCE WILBURN [facility] [id number] [facility] 2020-12-02 08:49:48 2020-12-02 09:19:48 Slab Miller Operator Visit Ultrasound, Carley Wong [facility] [employer] [facility] 1.2.840.114 350.1.13.10 4.2.7.2.686 [id number] [facility] 2020-12-02 08:00:00 2020-12-02 08:00:00 Outpatient P [facility] [id number] [facility] 2020-12-02 00:00:00 2020-12-02 00:00:00 Abstract CosmoLorenzoAlyce C [facility] POLL[facility] 1.2.840.114 350.1.13.10 4.2.7.2.686 [id number] [facility] 2020-11-11 09:48:35 2020-11-11 10:27:11 Routine Visit Alyce Wilburn [facility] POLL[employer] [facility] 1.2.840.114 350.1.13.10 4.2.7.2.686 [id number] [facility] 2020-11-11 09:45:00 2020-11-11 09:45:00 Outpatient R ALYCE WILBURN [facility] [id number] [facility] 2020-11-09 00:00:00 2020-11-09 00:00:00 Telephone Alyce Wilburn [facility] [employer]LL[employer] [facility] 1.2.840.114 350.1.13.10 4.2.7.2.686 [id number] 107 [id number] [facility] 2020-10-15 10:01:12 2020-10-15 11:07:22 Initial Visit Alyce Wilburn [facility] [employer] [facility] 1.2.840.114 350.1.13.10 4.2.7.2.686 [id number] 107 [id number] [facility] 2020-10-15 09:30:00 2020-10-15 09:30:00 Outpatient R [facility] [id number] [facility] 2020-10-15 00:00:00 2020-10-15 00:00:00 Orders Only Doctor Unassigned, [place] [facility] 1.2.840.114 350.1.13.10 4.2.7.2.686 [id number] [facility] 2020-10-07 14:00:00 2020-10-07 14:00:00 Outpatient R CHUCK PLATT [facility] [id number] [facility] 2020-05-13 09:30:00 2020-05-13 09:30:00 Outpatient R ALYCE WILBURN [facility] [id number] [facility] 2020-04-29 09:36:29 2020-04-29 10:43:13 Office Visit Provider, Leatha Juan [facility] [employer]LL[employer] MATERNAL & [facility]ILD [facility] 1..840.114 350.1.13.10 4.2.7.2.686 [id number] [facility] 2020-04-29 09:30:00 2020-04-29 09:30:00 Outpatient R [facility] [id number] [facility] 2020-04-14 14:00:00 2020-04-14 14:00:00 Outpatient R [facility] [id number] [facility] 2020-04-01 09:00:00 2020-04-01 09:00:00 Outpatient R CHUCK PLATT [facility] [id number] [facility] 2019-07-16 00:00:00 2019-07-16 00:00:00 Telephone Alyce Wilburn [facility] POLL[employer] ENG[facility]ER [facility] MATERNAL & CHILD [facility] 1..840.114 350.1.13.10 4.2.7.2.686 [id number] 107 [id number] [facility] 2019-06-20 00:00:00 2019-06-20 00:00:00 Telephone Alyce Wilburn [facility]LL[employer] [facility] 1.2.840.114 350.1.13.10 4.2.7.2.686 [id number] [facility] 2019-06-19 11:08:26 2019-06-19 11:59:15 Office Visit Alyce Wilburn [facility] [facility] 1.2.840.114 350.1.13.10 4.2.7.2.686 [id number] [facility] 2019-06-19 00:00:00 2019-06-19 00:00:00 Orders Only Doctor Unassigned, [place] [facility] 1.2.840.114 350.1.13.10 4.2.7.2.686 [id number] [facility] Results Test Description Test Time Test Comments Results Result Co mments Source [facility] WITH [id number] 21:55:54* Test Item Value Reference Range Interpretation Comme nts WBC (test code = 6690-2) See_Comment [Automated xkotoa eLama] The system which generated this result transmitted reference range: 4.30 - 11.10 10*3/?L. The reference range was not used to interpret this result as normal/abnormal. RBC (test code = 789-8) See_Comment [Automated xkotoa eLama] The system which generated this result transmitted reference range: 3.93 - 5.25 10*6/?L. The reference range was not used to interpret this result as normal/abnormal. HGB (test code = 718-7) 13.7 g/dL 11.6-15.0 HCT (test code = 4544-3) 40.7 % 35.7-45.2 MCV (test code = 787-2) 91.1 fL 80.6-95.5 MCH (test code = 785-6) 30.6 pg 25.9-32.8 MCHC (test code = 786-4) 33.7 g/dL 31.6-35.1 RDW-SD (test code = 87018-3) 43.0 fL 39.0-49.9 RDW-CV (test code = 788-0) 13.2 % 12.0-15.5 PLT (test code = 777-3) See_Comment [Automated messa ge] The system which generated this result transmitted reference range: 166 - 358 10*3/?L. The reference range was not used to interpret this result as normal/abnormal. MPV (test code = 45269-1) 12.3 fL 9.5-12.9 NRBC/100 WBC (test code = 5247277581) See_Comment [Automated me ssage] The system which generated this result transmitted reference range: 0.0 - 10.0 /100 WBCs. The reference range was not used to interpret this result as normal/abnormal. NRBC x10^3 (test code = 1618804842) See_Comment [Automated me ssage] The system which generated this result transmitted reference range: 10*3/?L. The reference range was not used to interpret this result as normal/abnormal. GRAN MAT (NEUT) % (test code = 770-8) 50.7 % IMM GRAN % (test code = 1030368732) 0.40 % LYMPH % (test code = 736-9) 38.4 % MONO % (test code = 5905-5) 8.5 % EOS % (test code = 713-8) 1.4 % BASO % (test code = 706-2) 0.6 % GRAN MAT x10^3(ANC) (test code = 4597496155) 2.51 10*3/uL 1.88-7.09 IMM GRAN x10^3 (test code = 1175137227) 0.00-0.06 LYMPH x10^3 (test code = 731-0) 1.90 10*3/uL 1.32-3.29 MONO x10^3 (test code = 742-7) 0.42 10*3/uL 0.33-0.92 EOS x10^3 (test code = 711-2) 0.07 10*3/uL 0.03-0.39 BASO x10^3 (test code = 704-7) 0.03 10*3/uL 0.01-0.07 [facility] MOLECULAR [id number] 17:08:52* Test Item Value Reference Range Interpretation Comme nts POCT Molecular FluA (test co de = 62473-0) Negative Negative POCT Molecular FluB (test co de = 19030-2) Negative Negative Lab Interpretation (test cod e = 47844-4) Normal [facility] MOLECULAR [id number] 16:45:07* Test Item Value Reference Range Interpretation Comme nts POCT Molecular Strep (test c ode = 05222-2) Negative Negative Lab Interpretation (test cod e = 83017-8) Normal [facility] Notes Date/Time Note Provider Source 2024-02-01 07:43:40 Images from the original note were not included. Changes Requested Name from pharmacy: TRAZODONE 50 MG TABLET Will file in chart as: TRAZODONE 50 mg tablet Sig: TAKE 1 TABLET BY MOUTH EVERY DAY AT BEDTIME NEEDED FOR INSOMNIA Disp: 90 tablet Refills: 1 Start: 02/01/2024 Class: eRX For: Anxiety and depression Last ordered: 1 month ago (12/11/2023) by LAUREN Sykes Last refill: 12/11/2023 Rx #: [id number] Pharmacy comment: REQUEST FOR 90 DAYS PRESCRIPTION. DX Code Needed. Psychiatry: Antidepressants Kzrtmw8502/01/2024 07:32 AM Protocol Details Manual Review: Verify no changes in dose in the last 3 months Valid encounter within last 12 months This request has changes from the previous prescription. To be filled at: [facility]/pharmacy #[id number] - [facility] [address] AT [facility] Recent Visits Date Type Provider Dept 08/21/23 Office Visit Cailin Gasca FNP [facility] 12/05/22 Office Visit Cailin Gasca FNP [facility] 09/23/22 Office Visit Cailin Gasca FNP [facility] Showing recent visits within past 540 days with a meds authorizing provider and meeting all other requirements Future Appointments No visits were found meeting these conditions. Showing future appointments within next 150 days with a meds authorizing provider and meeting all other requirements Candy Dominguez LVN [facility] 2023-12-11 08:03:29 Last Refilled: traZODone 50 mg [id number] vqtuzb337/1/2023----Sig: Take 1 tablet by mouth at bedtime as needed for Insomnia.Sent to pharmacy as: traZODone 50 mg tablet (DESYREL)Class: eRXRoute: OralOrder: [id number]/Time Signed: 10/13/2023 13:12E-Prescribing Status: Receipt confirmed by pharmacy (10/13/2023 1:12 PM [facility]ORTER) Notes: office visit 08/21/23 Assessment/Plan Anxiety and depression (primary encounter diagnosis) Comment: chronic, acute flare Plan: SERTraline (ZOLOFT) 25 mg tablet, traZODone 50 mg tablet, CBC WITH DIFF, COMP. METABOLIC PANEL (18683), THYROID STIMULATING HORMONE, LIPID PANEL (31320)(TOTAL CHOLESTEROL, TRIGLYCERIDES, HDL), VITAMIN D, 25-OH Problem acuity: Chronic problem. Risk: Anxiety can adversely affect physical health and thus are not without risk, not to mention the effects on quality of life. Progression: not controlled. Continue to keep in mind the neurochemical basis of anxiety and how environmental factors such as stress can play a role in disease presentation and progression. We discussed the patient's medication treatment options and decided upon continuing SSRI (sertraline). The potential side effects of this drug class/medication were reviewed and the patient voiced understanding. The patient has not expressed an interest in referral for counseling or Psychiatry care at this time. Continue Healthy ways of coping with his/her emotional symptoms and stress as previously shared with the patient. Thyroid function testing is already up-to-date or will be ordered. Close follow-up has been recommended but the patient understands he/she can follow-up even sooner if the symptoms don't improve or if other mental health issues develop. ER if any SI, HI. Recent Visits Date Type Provider Dept 08/21/23 Office Visit Cailin Gasca FNP [facility] 12/05/22 Office Visit Cailin Gasca FNP [facility] 09/23/22 Office Visit Cailin Gasca FNP [facility] Showing recent visits within past 540 days with a meds authorizing provider and meeting all other requirements Future Appointments No visits were found meeting these conditions. Showing future appointments within next 150 days with a meds authorizing provider and meeting all other requirements ER Arellano RN [facility] 2023-11-16 17:55:26 Please follow up in clinic ER [facility]
--- NOTE | 2025-02-15 11:34 | RAD REPORT ---
EXAMINATION: Transvaginal OB COMPARISON: None. HISTORY: VAGINAL BLEEDING TECHNIQUE: Real-time ultrasound was performed through the pelvis. A transvaginal scan was performed t o better visualize the intrauterine contents and adnexa. FINDINGS: There is a single intrauterine . Cardiac activity suspected to be present visually but could not be measured accurately. There is no visible subchorionic hemorrhage. Both ovaries are visualized and appear unremarkable. There is no free fluid in the cul-de-sac. Measurements and Calculations: Warrens rump length 3 mm, consistent with a sonographic age of 5 weeks, 5 days. Estimated date of deli very is 10/13/2025 IMPRESSION: Single intrauterine , with a composite sonographic age of 5 weeks, 5 days. Cardiac activity was visually seen however could not be accurately measured due to movement. Consider follow-up pelvic ultrasound in 7-10 days to document FHT.
[2025-02-15 11:48] LABS: Specific Gravity 1.021 (1.005-1.030)
[2025-02-15 11:48] LABS: Absolute Eosinophils 0.1 K/uL (0-0.5); Absolute Lymphocytes (CBC) 1.7 K/uL (0.7-4.9); Absolute Monocytes 0.3 K/uL (0.1-1.3); Absolute Neutrophil 3.2 K/uL (1.8-8.0); Basophils % 0.7 % (0-1.3); Eosinophils % 1.2 % (0-4.4); Hematocrit 39.7 % (36.0-45.0); Hemoglobin 13.6 g/dL (12.0-15.0); Lymphocytes % 31.7 % (15.3-44.8); MCH 30.7 pg (27.0-35.0); MCHC 34.2 g/dL (32.0-36.0); MCV 89.8 fL (80-100); MPV 10.5 fL (7.6-11.3); Monocytes % 6.5 % (3.3-12.3); Neutrophils % 59.9 % (41.7-73.7); Nucleated Red Blood Cells % 0.1 % (0-0); Platelets 185 thou/uL (152-406); RBC Red Blood Cell Count 4.42 M/uL (3.86-4.86); Red Cell Distribution Width 13.3 % (12.1-15.2)
[2025-02-15 11:49] LABS: Specific Gravity 1.021 (1.005-1.030); Sqamous Epithelial <5 /HPF (None Seen); Urine Bacteria <20 /HPF (<20); Urine Bilirubin NEGATIVE (Negative); Urine Blood 3+ (OVER) (Negative); Urine Clarity Turbid (Clear); Urine Color Light-Yellow (Yellow); Urine Culture Reflex Order NOT NEEDED; Urine Glucose NEGATIVE (Negative); Urine Ketones NEGATIVE (Negative); Urine Microscopic Reflex YN ORDER UMIC; Urine Nitrite NEGATIVE (Negative); Urine Protein TRACE (Negative); Urine RBC >50 /HPF (None Seen); Urine Urobilinogen Normal (Normal); Urine WBC <5 /HPF (<5); Urine Yeast (Budding) Occasional /HPF (None Seen)
[2025-02-15 12:19] LABS: Anion Gap 8.2 mEq/L (5.0-15.0); Potassium 3.2 mEq/L (3.5-5.1)
--- NOTE | 2025-02-15 12:29 | ER ---
Nurse's Notes [facility] Name: Neli Almanza Age: 39 yrs Sex: Female : 1985 Arrival Date: 02/15/2025 Time: 10:42 Bed 16 Private MD: Diagnosis: Threatened Presentation: 02/15 11:32 Chief complaint: Patient states: vaginal discharge and bleeding started at 10 am today iw , is approx 7 weeks . Coronavirus screen: At this time, the client does not indicate any symptoms associated with coronavirus-19. Ebola Screen: No symptoms or risks identified at this time. Initial Sepsis Screen: Does the patient meet any 2 criteria? No. Patient's initial sepsis screen is negative. Does the patient have a suspected source of infection? No. Patient's initial sepsis screen is negative. Risk Assessment: Do you want to hurt yourself or someone else? Patient reports no desire to harm self or others. Onset of symptoms was February 15, 2025. 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 - Infectious Disease History:: Denies. - Social history:: Smoking status: . Screenin:44 [facility] ED Fall Risk Assessment (Adult) History of falling in the last 3 months, kj2 including since admission No falls in past 3 months (0 pts) Confusion or Disorientation No (0 pts) Intoxicated or Sedated No (0 pts) Impaired Gait No (0 pts) Mobility Assist Device Used No (0 pt) Altered Elimination No (0 pt) Score/Fall Risk Level 0 - 2 = Low Risk Maintained a safe environment, Hourly rounding (assess needs \T\ fall precautionary measures) done. Abuse screen: Denies threats or abuse. Denies injuries from another. Nutritional screening: No deficits noted. Tuberculosis screening: No symptoms or risk factors identified. Assessment: 12:15 Obstetrical Assessment: General assessment:. General: Appears in no apparent distress. kj2 Behavior is calm, cooperative. Pain: Denies pain. Neuro: Level of Consciousness is awake, alert, obeys commands, Oriented to person, place, time, situation. Cardiovascular: Patient's skin is warm and dry. Respiratory: Airway is patent Respiratory effort is unlabored. GI: No signs and/or symptoms were reported involving the gastrointestinal system. : Reports vaginal bleeding that is bright red. Vital Signs: 11:32 BP 120 / 82; Pulse 80; Resp 16; Temp 97.4; Pulse Ox 100% ; Weight 77.11 kg; Height 5 iw ft. 0 in. ; 11:32 Body Mass Index 33.20 (77.11 kg, 152.4 cm) iw ED Course: 10:43 Patient arrived in ED. mr 10:44 Russell Parks MD is Attending Physician. sp3 11:22 US Transvaginal Ob In Process Unspecified. EDMS 11:33 Triage completed. iw 11:40 Initial lab(s) drawn, by me, sent to lab. Inserted saline lock: 20 gauge in right zm wrist, using aseptic technique. Blood collected. Flushed with 10 mL NS. 11:40 Abo/rh Typing Sent. zm 11:40 Basic Metabolic Panel Sent. zm 11:40 CBC with Diff Sent. zm 11:40 Test, Urine Sent. zm 11:40 Quantitative Hcg Sent. zm 11:40 Urinalysis w/ reflexes Sent. zm 11:41 Urine collected: clean catch specimen, clear, stuart colored. zm 12:15 No provider procedures requiring assistance completed. kj2 12:15 Patient has correct armband on for positive identification. Bed in low position. Call kj2 light in reach. Provided Education on: call light. 12:42 Mercedes Rawls, RN is Primary Nurse. kj2 12:47 IV discontinued, intact, bleeding controlled, No redness/swelling at site. Pressure kj2 dressing applied. 12:47 Arm band placed on. kj2 Administered Medications: No medications were administered Medication: 12:46 VIS not applicable for this client. kj2 Point of Care Testing: Urine : 12:46 hCG Reading: Positive; Control Reading: Positive; kj2 Outcome: 12:28 Discharge ordered by . sp3 12:46 Discharged to home kj2 12:46 Condition: stable 12:46 Discharge instructions given to patient, Instructed on discharge instructions, follow up and referral plans. Demonstrated understanding of instructions, follow-up care, 12:56 Patient left the ED. kj2 Signatures: Dispatcher [employer] Eugenie Trejo, Reg Piper Mcclelland, Russell Munoz RN, MD MD sp3 Suri Fuentes Krystal, RN RN kj2
--- NOTE | 2025-02-15 12:29 | EDPHYS ---
Physician Documentation [facility] Name: Neli Almanza Age: 39 yrs Sex: Female : 1985 Arrival Date: 02/15/2025 Time: 10:42 Bed 16 Private MD: ED Physician Russell Parks HPI: 02/15 12:16 This 39 yrs old Female presents to ER via Ambulatory with complaints of sp3 Vaginal Bleeding, + Preg <12wks. 12:16 39-year-old female with no significant past medical history presents as a G6, at sp3 5 weeks LMP for vaginal bleeding that is now resolved. Episode occurred while she was at work. She denies any ongoing symptoms or pain. ROS otherwise negative.. 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 - Infectious Disease History:: Denies. - Social history:: Smoking status: . ROS: 12:16 Constitutional: Negative for fever, chills, and weight loss, Eyes: Negative for injury, sp3 pain, redness, and discharge, ENT: Negative for injury, pain, and discharge, Neck: Negative for injury, pain, and swelling, Cardiovascular: Negative for chest pain, palpitations, and edema, Respiratory: Negative for shortness of breath, cough, wheezing, and pleuritic chest pain, Abdomen/GI: Negative for abdominal pain, nausea, vomiting, diarrhea, and constipation, Back: Negative for injury and pain, MS/Extremity: Negative for injury and deformity, Skin: Negative for injury, rash, and discoloration, Neuro: Negative for headache, weakness, numbness, tingling, and seizure, Psych: Negative for depression, anxiety, suicide ideation, homicidal ideation, and hallucinations, Allergy/Immunology: Negative for hives, rash, and allergies, Endocrine: Negative for neck swelling, polydipsia, polyuria, polyphagia, and marked weight changes, 12:16 All other systems are negative, Exam: 12:16 Constitutional: This is a well developed, well nourished patient who is awake, alert, sp3 and in no acute distress. Head/Face: Normocephalic, atraumatic. Eyes: Pupils equal round and reactive to light, extra-ocular motions intact. Lids and lashes normal. Conjunctiva and sclera are non-icteric and not injected. Cornea within normal limits. Periorbital areas with no swelling, redness, or edema. Neck: Trachea midline, no thyromegaly or masses palpated, and no cervical lymphadenopathy. Supple, full range of motion without nuchal rigidity, or vertebral point tenderness. No Meningismus. Chest/axilla: Normal chest wall appearance and motion. Nontender with no deformity. No lesions are appreciated. Cardiovascular: Regular rate and rhythm with a normal S1 and S2. No gallops, murmurs, or rubs. Normal PMI, no JVD. No pulse deficits. Respiratory: Lungs have equal breath sounds bilaterally, clear to auscultation and percussion. No rales, rhonchi or wheezes noted. No increased work of breathing, no retractions or nasal flaring. Abdomen/GI: Soft, non-tender, with normal bowel sounds. No distension or tympany. No guarding or rebound. No evidence of tenderness throughout. Back: No spinal tenderness. No costovertebral tenderness. Full range of motion. Skin: Warm, dry with normal turgor. Normal color with no rashes, no lesions, and no evidence of cellulitis. MS/ Extremity: Pulses equal, no cyanosis. Neurovascular intact. Full, normal range of motion. Neuro: Awake and alert, GCS 15, oriented to person, place, time, and situation. Cranial nerves II-XII grossly intact. Motor strength 5/5 in all extremities. Sensory grossly intact. Cerebellar exam normal. Normal gait. Psych: Awake, alert, with orientation to person, place and time. Behavior, mood, and affect are within normal limits. 12:16 : No active bleeding., Vital Signs: 11:32 BP 120 / 82; Pulse 80; Resp 16; Temp 97.4; Pulse Ox 100% ; Weight 77.11 kg; Height 5 iw ft. 0 in. ; 11:32 Body Mass Index 33.20 (77.11 kg, 152.4 cm) iw MDM: 10:45 Medical Screening Exam initiated sp3 12:17 Data reviewed: vital signs, nurses notes, lab test result(s), radiologic studies. ED sp3 course: IUP at just over 5 weeks. heart motion present but unable to get heart rate due to size. Labs pending including quant. Probable discharge home once labs are back. Patient in no acute distress resting comfortably. She already has an appointment for OB for next week.. 12:27 ED course: Patient blood type is O+. hCG at 6000. We will safely discharge patient home sp3 at this time. I have given her precautions on avoiding strenuous exercise, intercourse or any strenuous activity. 02/15 10:46 Order name: Abo/rh Typing; Complete Time: 12:27 sp3 02/15 10:46 Order name: Basic Metabolic Panel; Complete Time: 12:27 sp3 02/15 10:46 Order name: CBC with Diff; Complete Time: 12:04 sp3 02/15 10:46 Order name: Test, Urine; Complete Time: 12:04 sp3 02/15 10:46 Order name: Quantitative Hcg; Complete Time: 12:27 sp3 02/15 10:46 Order name: Urinalysis w/ reflexes; Complete Time: 12:04 sp3 02/15 10:46 Order name: US Transvaginal Ob; Complete Time: 11:36 sp3 02/15 10:46 Order name: IV Saline Lock; Complete Time: 11:40 sp3 02/15 10:46 Order name: Labs collected and sent; Complete Time: 11:40 sp3 02/15 10:46 Order name: NPO; Complete Time: 11:40 sp3 Administered Medications: No medications were administered Point of Care Testing: Urine : 12:46 hCG Reading: Positive; Control Reading: Positive; kj2 Disposition Summary: 02/15/25 12:28 Discharge Ordered Notes: Location: Home sp3 Condition: Stable sp3 Diagnosis - Threatened sp3 Followup: sp3 - With: Private Physician - When: Upon discharge from the Emergency Department - Reason: Recheck today's complaints, Continuance of care Discharge Instructions: - Discharge Summary Sheet sp3 - Threatened Miscarriage sp3 Forms: - Medication Reconciliation Form sp3 - Antibiotic Education sp3 - Prescription Opioid Use sp3 - Patient Portal Instructions sp3 - Leadership Thank You Letter sp3 - Work release form kj2 Signatures: Dispatcher [employer] Piper Miller RN RN iw Russell Parks MD MD sp3 Mercedes Rawls RN RN kj2 Corrections: (The following items were deleted from the chart) 10:46 10:46 ABO/RH TYPING+BB.LAB.BRZ ordered. EDMS EDMS 10:46 10:46 BASIC METABOLIC PANEL+C.LAB.BRZ ordered. EDMS EDMS 10:46 10:46 CBC+H.LAB.BRZ ordered. EDMS EDMS 10:46 10:46 Test, Urine+UC.LAB.BRZ ordered. EDMS EDMS 10:46 10:46 QUANTITATIVE HCG+C.LAB.BRZ ordered. EDMS EDMS 10:46 10:46 Urinalysis+U.LAB.BRZ ordered. EDMS EDMS 10:46 10:46 Transvaginal Ob+US.RAD.BRZ ordered. EDMS EDMS
[2025-02-15 13:10] VITALS: BP 120/82; TEMP 97.4; O2SAT 100
== END 2025-02-15 12:56 | disposition home or self-care (01) ==
LOC: ER 10:42
DX: O20.0 Threatened abortion (principal)
CPT/HCPCS: 36415; 76817; 80048; 81001; 81025; 84702; 85025; 86900; 86901; 99284